=== PATIENT | male | born 1960 | race African-American/Black ===

== ENCOUNTER 2023-08-09 16:16 | Emergency (ER) | payer MEDICAID ==
[~2023-08-09] VITALS: Ht 180.3 cm; Wt 83.9 kg
[2023-08-09 18:13] LABS: BASOPHILS # (AUTO) 0.1 X10'3 (0-0.2); BASOPHILS % (AUTO) 0.3 % (0-1); EOSINOPHILS # (AUTO) 0.1 X10'3 (0-0.9); EOSINOPHILS % (AUTO) 0.3 % (0-6); HEMATOCRIT 37.7 % (42.0-52.0); HEMOGLOBIN 12.9 g/dl (14.0-17.9); LYMPHOCYTES # (AUTO) 1.2 X10'3 (1.1-4.8); LYMPHOCYTES % (AUTO) 7.1 % (21-51); MEAN CORPUSCULAR HEMOGLOBIN 31.7 PG (27.0-31.0); MEAN CORPUSCULAR HGB CONC 34.2 g/dL (33.0-36.5); MEAN CORPUSCULAR VOLUME 92.6 FL (78-98); MEAN PLATELET VOLUME 7.1 FL (7.4-10.4); MONOCYTES % (AUTO) 5.9 % (2-12); NEUTROPHILS # (AUTO) 14.3 X10'3 (1.8-7.7); NEUTROPHILS % (AUTO) 86.4 % (42-75); PLATELET COUNT 238 X10'3 (140-440); RED BLOOD COUNT 4.08 X10'6 (4.70-6.10); RED CELL DISTRIBUTION WIDTH 14.9 % (11.5-14.5); WHITE BLOOD COUNT 16.5 X10'3 (4.5-11.0)
[2023-08-09 18:58] LABS: ALBUMIN 3.1 G/DL (3.4-5.0); ANION GAP 10 (8-16); BLOOD UREA NITROGEN 15 MG/DL (7-18); BUN/CREATININE RATIO 14.9 (10.0-20.0); CALCIUM 8.8 MG/DL (8.5-10.1); CHLORIDE 105 MMOL/L (99-107); CREATININE 1.01 MG/DL (0.60-1.10); GLUCOSE 118 MG/DL (70-104); POTASSIUM 3.1 MMOL/L (3.5-5.1); PRO BRAIN NATRIURETIC PEPTIDE 138 PG/ML (0-125); SODIUM 143 MMOL/L (135-145); TOTAL CARBON DIOXIDE 27.8 MMOL/L (24-32); eCRCL 83 ML/MIN; eGFR 75 ML/MIN
[2023-08-09] MEDS ORDERED: iohexol 300mg/ml 100ml inj. ONE (19:02)
[2023-08-09] MEDS: methylPREDNISolone sod succ 125mg/2ml vial IV ONE (19:52)
[2023-08-09] MEDS: CefTRIAXone 2gm/D5W 50ml BAG 50 ML IV ONE (19:52)
[2023-08-09] MEDS: potassium cl 20mEq in 1/2 NS 1,000 ML IV ONE (19:53)
[2023-08-09 20:41] LABS: MAGNESIUM 2.3 MG/DL (1.5-2.4)
[2023-08-09] MEDS: acetaminophen 1,000mg/100ml IV 100 ML IV ONE (21:08)
[2023-08-10] MEDS: VANCOMYCIN 1,500MG inj. 1,500 MG in normal saline 500ml IV soln 300 ML IV ONE (01:50)
[2023-08-10 05:53] VITALS: TEMP 98.9
[2023-08-10 06:50] LABS: BILIRUBIN,URINE NEGATIVE (Neg); CLARITY,URINE CLEAR (Clear); COLOR,URINE YELLOW (Yellow); GLUCOSE, URINE NEGATIVE (Neg); KETONES,URINE 40 mg/dl (Neg); LEUKOCYTE ESTERASE ,URINE NEGATIVE (Neg); NITRITES, URINE NEGATIVE (Neg); OCCULT BLOOD,URINE MODERATE (Neg); PROTEIN,URINE 100 mg/dl (Neg)
[2023-08-10 06:58] LABS: UA COLLECTION TYPE CLN CATCH MIDSTREAM
[2023-08-10 07:00] LABS: BACTERIA,URINE FEW /HPF (Neg); CELLULAR CAST 0-4 /LPF (NEGATIVE); MUCUS STRANDS NONE SEEN /LPF (Neg); SQUAMOUS EPITHELIAL CELL,UR FEW /LPF (FEW)
[2023-08-10 09:41] VITALS: BP 136/94; PULSE 71; RESP 21; O2SAT 97
== END 2023-08-10 10:06 | disposition hospice, inpatient (51) ==
LOC: ER 16:17
DX: J39.0 Retropharyngeal and parapharyngeal abscess (principal)
CPT/HCPCS: 36415; 70491; 71045; 80048; 81001; 83605; 83735; 83880; 84145; 84484; 85025; 87040; 87088; 93005; 96365; 96366; 96367; 96375; 99285; J0131; J0696; J2930; J3370; J3480; J3490; J7040; Q9967